=== PATIENT | female | born 1995 | race Caucasian/White ===

== ENCOUNTER 2020-03-02 20:07 | Inpatient (IN) | payer MEDICAID ==
[~2020-03-02] VITALS: Ht 157.5 cm; Wt 59.1 kg
[2020-03-02 21:15] LABS: BASOPHILS % (AUTO) 0.3 % (0.0-2.0); EOSINOPHILS % (AUTO) 3.2 % (1.0-6.0); HEMATOCRIT 44.6 % (36-46); HEMOGLOBIN 15.1 g/dL (12.0-16.0); LYMPHOCYTES # (AUTO) 2.5 K/uL (1.0-4.8); LYMPHOCYTES % (AUTO) 20.9 % (22.0-44.0); MEAN CORPUSCULAR HEMOGLOBIN 30.8 pg (26.0-34.0); MEAN CORPUSCULAR HGB CONC 33.9 G/dL (31.0-37.0); MEAN CORPUSCULAR VOLUME 91 fL (80-100); MONOCYTES # (AUTO) 0.6 K/uL (0.1-1.0); MONOCYTES % (AUTO) 4.7 % (2.0-9.0); NEUTROPHILS # (AUTO) 8.4 K/uL (1.8-7.7); NEUTROPHILS % (AUTO) 70.9 % (40.0-70.0); PLATELET COUNT (AUTO) 257 K/uL (150-450); RED BLOOD CELL COUNT(AUTO) 4.91 MIL/uL (4.00-5.20); RED CELL DISTRIBUTION WIDTH 13.8 % (11.5-14.5)
[2020-03-02] MEDS ORDERED: LORazepam 2 MG TABLET PO ONE (21:15)
[2020-03-02 21:20] LABS: AMPHET/METH SCREEN,URINE NEGATIVE (NEGATIVE); BARBITURATE SCREEN, URINE NEGATIVE (NEGATIVE); BENZODIAZEPINES SCREEN,URINE NEGATIVE (NEGATIVE); CANNABINOID SCREEN,URINE NEGATIVE (NEGATIVE); COCAINE SCREEN,URINE NEGATIVE (NEGATIVE); METHADONE SCREEN, URINE NEGATIVE (NEGATIVE); OPIATE SCREEN,URINE NEGATIVE (NEGATIVE)
[2020-03-02 21:21] LABS: PHENCYCLIDINE SCREEN,URINE NEGATIVE (NEGATIVE)
[2020-03-02 21:22] LABS: ANION GAP 9 mmol/L (8-16); CALCIUM, TOTAL 9.2 mg/dL (8.8-10.5); CARBON DIOXIDE 29 mmol/L (22-29); CHLORIDE 102 mmol/L (98-107); CREATININE 0.64 mg/dL (0.60-1.30); GLOMERULAR FILTR. RATE CALC > 60 mL/min (>60); GLUCOSE,RANDOM 84 mg/dL (70-110); POTASSIUM 3.6 mmol/L (3.5-5.1); SODIUM SERUM 140 mmol/L (136-145); UREA NITROGEN, BLOOD 11 mg/dL (7-18)
[2020-03-02 21:33] LABS: ALANINE AMINOTRANSFERASE 24 U/L (12-78); ALBUMIN 4.7 g/dL (3.4-5.0); ALKALINE PHOSPHATASE 78 U/L (46-116); ASPARTATE AMINOTRANSFERASE 16 U/L (15-37); BILIRUBIN,TOTAL 0.3 mg/dL (0.1-1.0); HCG,QUANTITATIVE < 1 mIU/mL (0-6); TOTAL PROTEIN, SERUM 8.2 g/dL (6.4-8.2)
[2020-03-02] MEDS ORDERED: HALOPERIDOL 5 MG TABLET PO PRN (21:45)
[2020-03-02 23:08] LABS: GLUCOSE,POINT OF CARE 71 MG/DL (70-110)
[2020-03-03] MEDS: ZOLPIDEM TARTRATE 10 MG TABLET PO PRN ×2 (01:47→20:53)
[2020-03-03 03:07] VITALS: BP 129/77
[2020-03-03 08:16] VITALS: BP 103/66
[2020-03-03] MEDS ORDERED: ACETAMINOPHEN 325 MG TABLET PO PRN (11:00)
[2020-03-03] MEDS ORDERED: IBUPROFEN 600 MG TABLET PO PRN (11:00)
[2020-03-03] MEDS ORDERED: BACITRACIN 28.4 GM OINTMENT TP PRN (11:00)
[2020-03-03] MEDS ORDERED: LOPERAMIDE HCL 2 MG CAPSULE PO PRN (11:00)
[2020-03-03] MEDS ORDERED: CloNIDine HCL 0.1 MG TABLET PO PRN (11:00)
[2020-03-03] MEDS ORDERED: PETROLATUM,WHITE 28 GM JELLY TP PRN (11:00)
[2020-03-03] MEDS ORDERED: MAG HYDROX/AL HYDROX/SIMETH ES 30 ML SUSPENSION UDCUP PO PRN (11:00)
[2020-03-03] MEDS ORDERED: BENZOCAINE/MENTHOL LOZENGE MM PRN (11:00)
[2020-03-03] MEDS ORDERED: MAGNESIUM HYDROXIDE SUSPENSION 30 ML UDCUP PO PRN (11:00)
[2020-03-03] MEDS ORDERED: ALBUTEROL SULFATE HFA 90 MCG/PUFF 8 GM INHALER IH PRN (11:00)
[2020-03-03] MEDS ORDERED: ONDANSETRON HCL 4 MG TABLET PO PRN (11:00)
[2020-03-03 16:49] VITALS: BP 124/66
[2020-03-04 05:35] VITALS: BP 115/78
[2020-03-04 08:11] VITALS: BP 109/70
[2020-03-04] MEDS: OMEPRAZOLE 20 MG CAPSULE PO SCH (08:40)
[2020-03-04] MEDS: DOCUSATE SODIUM 100 MG CAPSULE PO SCH (08:40)
[2020-03-04 16:00] VITALS: BP 110/72
[2020-03-04] MEDS: DIVALPROEX SODIUM 500 MG DR TABLET PO SCH (16:18)
[2020-03-04] MEDS: RisperiDONE 0.5 MG TABLET PO SCH (16:18)
[2020-03-04] MEDS: ZOLPIDEM TARTRATE 10 MG TABLET PO PRN (20:08)
[2020-03-05 06:33] VITALS: BP 106/63
[2020-03-05 08:20] VITALS: BP 109/66
[2020-03-05] MEDS: DIVALPROEX SODIUM 500 MG DR TABLET PO SCH ×2 (08:47→16:25)
[2020-03-05] MEDS: DOCUSATE SODIUM 100 MG CAPSULE PO SCH (08:47)
[2020-03-05] MEDS: OMEPRAZOLE 20 MG CAPSULE PO SCH (08:48)
[2020-03-05] MEDS: RisperiDONE 0.5 MG TABLET PO SCH ×2 (08:48→16:25)
[2020-03-05 17:26] VITALS: BP 114/75
[2020-03-05] MEDS: LORazepam 2 MG TABLET PO PRN (18:33)
[2020-03-05] MEDS: ZOLPIDEM TARTRATE 10 MG TABLET PO PRN (21:40)
[2020-03-06 05:51] VITALS: BP 112/70
[2020-03-06 08:06] VITALS: BP 113/86
[2020-03-06] MEDS: DIVALPROEX SODIUM 500 MG DR TABLET PO SCH ×2 (08:59→17:00)
[2020-03-06] MEDS: OMEPRAZOLE 20 MG CAPSULE PO SCH (08:59)
[2020-03-06] MEDS: DOCUSATE SODIUM 100 MG CAPSULE PO SCH (08:59)
[2020-03-06] MEDS: RisperiDONE 0.5 MG TABLET PO SCH ×2 (09:00→17:00)
[2020-03-06] MEDS: LORazepam 2 MG TABLET PO PRN (11:07)
[2020-03-06 16:12] VITALS: BP 102/67
[2020-03-07 05:42] VITALS: BP 100/68
[2020-03-07] MEDS ORDERED: OMEPRAZOLE 20 MG CAPSULE PO PRN (08:15)
[2020-03-07] MEDS ORDERED: DOCUSATE SODIUM 100 MG CAPSULE PO PRN (08:15)
[2020-03-07] MEDS: RisperiDONE 0.5 MG TABLET PO SCH (08:24)
[2020-03-07] MEDS: DIVALPROEX SODIUM 500 MG DR TABLET PO SCH (08:25)
[2020-03-07 08:56] VITALS: BP 113/71
[2020-03-07] MEDS ORDERED: RISP.5 PO (16:18)
[2020-03-07] MEDS ORDERED: DIVA500T52 PO (16:18)
[2020-03-07 16:28] VITALS: BP 123/75
== END 2020-03-07 17:45 | disposition home or self-care (01) | DRG 750 ==
LOC: EMS 20:07 → B2S 22:23
PROVIDERS: ADMIT Psychiatry & Neurology Psychiatry; ATTEND Psychiatry & Neurology Psychiatry
DX: F25.9 Schizoaffective disorder, unspecified (principal); R45.851 Suicidal ideations; F32.9 Major depressive disorder, single episode, unspecified; F41.9 Anxiety disorder, unspecified; G47.00 Insomnia, unspecified; M54.5 Low back pain; F43.10 Post-traumatic stress disorder, unspecified; M79.7 Fibromyalgia
CPT/HCPCS: G0480